=== PATIENT | female | born 1970 | race Caucasian/White ===

== ENCOUNTER 2017-12-30 20:21 | Emergency (ER) | payer OTHER ==
--- NOTE | 2017-12-30 21:32 | ED Physician Documentation ---
PD HPI BACK PAIN - Stated complaint Stated Complaint: BACK PAIN - Chief complaint Chief Complaint: Back Pain - History obtained from History obtained from: Patient - History of Present Illness Timing - onset: How many hours ago, Today Timing - duration: Hours Timing - details: Abrupt onset, Still present Location: Upper, Right Quality: Pain, Sharp Associated symptoms: Other (has had cough and congestion for few days, coughing hard. Onset of pain right thoracic back today.). No: Fever, Weakness, Numbness Worsened by: Movement, Twisting, Other (deep breathing) Contributing factors: Other (cough). 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 HEENT: None Other Past Medical History: Uteran cyst - Past Surgical History Past Surgical History: No /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: section, Other - Present Medications Home Medications: Ambulatory Orders Medication Instructions Recorded Confirmed Doxycycline Monohydrate 100 mg PO BID #14 tablet 12/30/17 HYDROcod/ACETAM 5/325 [[place] 5/325] 1 tab PO Q6H PRN #12 tablet 12/30/17 Methocarbamol [Robaxin] 500 mg PO Q6H PRN #20 tablet 12/30/17 Naproxen 375 mg PO BID #20 tablet 12/30/17 - Allergies Allergies/Adverse Reactions: Allergies Allergy/AdvReac Type Severity Reaction Status Date / Time codeine AdvReac Hives Verified 12/30/17 20:31 - Social History Does the pt smoke?: No Smoking Status: Never smoker Does the pt drink ETOH?: Yes Does the pt have substance abuse?: No - Family History Family history: denies: Aortic aneursym, Aortic dissection - Immunizations Immunizations are current?: Yes - POLST Patient has POLST: No PD ED PE NORMAL - Vitals Vital signs reviewed: Yes (sats 99%, initial heart rate was fast.) - General General: Alert and oriented X 3, Well developed/nourished - HEENT HEENT: Ears normal, Pharynx benign - Neck Neck: Supple, no meningeal sign, No adenopathy - Cardiac Cardiac: RRR, No murmur - Respiratory Respiratory: Clear bilaterally, Other (thoracic back muscles tender to firmer palpation. ) - Abdomen Abdomen: Normal bowel sounds, Soft, Non tender, Non distended - Back Back: No CVA TTP, No spinal TTP (but tender in mid thoracic muscles to the right. ) - Derm Derm: Normal color, Warm and dry, No rash - Extremities Extremities: No deformity, No tenderness to palpate, No edema, No calf tenderness / cord - Neuro Neuro: Alert and oriented X 3, No motor deficit, Normal speech Results - Vitals Vitals: Oxygen O2 Source Room air - Labs Labs: Laboratory Tests 12/30/17 22:25 Urine Color YELLOW Urine Clarity HAZY Urine pH 5.5 Ur Specific [place] >=1.030 H Urine Protein NEGATIVE Urine Glucose (UA) NEGATIVE Urine Ketones TRACE Urine Occult Blood NEGATIVE Urine Nitrite POSITIVE H Urine Bilirubin NEGATIVE Urine Urobilinogen 0.2 (NORMAL) Ur Leukocyte Esterase NEGATIVE Urine RBC None Seen Urine WBC 0-3 Ur Squamous Epith Cells MOD Squamous H Urine Crystals 3-5 Calcium Oxalate Urine Bacteria Few Urine Mucus Moderate Strands Ur Microscopic Review INDICATED Urine Culture Comments NOT INDICATED - Rads (name of study) chest xray Radiology: Prelim report reviewed, EMP read contemporaneously (right mid lung field infiltrate. no PTX nor other acute process. ) PD MEDICAL DECISION MAKING - ED course Complexity details: reviewed results, considered differential (has pneumonia appearance in area of pain and has had cough. Presume some pleurisy and muscular pain in that area. No risk factors for PE nor any leg findings. Sats are good. Heart rhythm is good. ), d/w patient Departure - Departure Disposition: 01 Home, Self Care Clinical Impression: Acute thoracic back pain Qualifiers: Back pain laterality: right Qualified Code(s): M54.6 - Pain in thoracic spine Pneumonia Qualifiers: Pneumonia type: due to unspecified organism Laterality: right Lung location: middle lobe of lung Qualified Code(s): J18.1 - Lobar pneumonia, unspecified organism Condition: Stable Record reviewed to determine appropriate education?: Yes Instructions: ED Spasm Back No Trauma, ED Pneumonia Adult Follow-Up: Leatha Regan PA [Primary Care Provider] - Prescriptions: Doxycycline Monohydrate 100 mg PO BID #14 tablet HYDROcod/ACETAM 5/325 [[place] 5/325] 1 tab PO Q6H PRN #12 tablet PRN Reason: Pain Methocarbamol [Robaxin] 500 mg PO Q6H PRN #20 tablet PRN Reason: Spasms Naproxen 375 mg PO BID #20 tablet Comments: Your urine does not have any blood so not suggestive of a kidney stone and your symptoms are not quite sound like that. Chest x-ray does show a small little patch on the right side suggestive of early pneumonia. This can cause inflammation around the lung I can hurt quite a bit with coughing and breathing. Sounds like some element of muscular pain as well given your description of it. I would have you take an anti-inflammatory naproxen twice daily for the next week. Doxycycline antibiotic twice daily for a week for the infection. Add Robaxin if needed for muscle spasms and stiffness. Add Tylenol or hydrocodone if needed for worse pain. Recheck if not improved over the next few days. Discharge Date/Time: 12/30/17 23:01
[2017-12-30] MEDS ORDERED: METHOCARBAMOL 500 MG TABLET PO STA (21:58)
[2017-12-30] MEDS ORDERED: HYDROcod/ACET 5/325 Prepack 6 PO STA (21:58)
[2017-12-30] MEDS ORDERED: HYDROcod/ACETAM 5/325 MG TABLET PO STA (21:58)
[2017-12-30] MEDS ORDERED: NAPROXEN 250 MG TABLET PO STA (21:58)
[2017-12-30 22:32] LABS: GLUCOSE, URINE (UA) NEGATIVE (NEGATIVE); KETONES,URINE (UA) TRACE mg/dL (NEGATIVE); LEUKOCYTE ESTERASE, URINE NEGATIVE (NEGATIVE); NITRITE,URINE POSITIVE (NEGATIVE); OCCULT BLOOD,URINE NEGATIVE (NEGATIVE); PH,URINE 5.5 PH (5.0-7.5); PROTEIN,URINE NEGATIVE (NEGATIVE); UROBILINOGEN,URINE 0.2 (NORMAL) E.U./dL (NORMAL)
[2017-12-30 22:36] LABS: BILIRUBIN,URINE NEGATIVE (NEGATIVE); ICTOTEST,URINE NEGATIVE
[2017-12-30 22:37] LABS: CLARITY,URINE HAZY (CLEAR)
[2017-12-30 22:41] LABS: BACTERIA,URINE Few /HPF (None Seen); CRYSTALS,URINE 3-5 Calcium Oxalate /LPF; MUCUS,URINE Moderate Strands; RBC,URINE None Seen /HPF (0-5); SQUAMOUS EPITHELIAL CELL,UR MOD Squamous (<= Few)
[2017-12-30] MEDS ORDERED: DOXYCYCLINE 100 MG TABLET PO STA (22:43)
--- NOTE | 2017-12-30 22:46 | XRAY Report ---
EXAM: CHEST RADIOGRAPHY EXAM DATE: 12/30/2017 10:25 PM. CLINICAL HISTORY: Right back/thoracic pain tonight. COMPARISON: None. TECHNIQUE: 2 views. FINDINGS: Lungs/Pleura: Focal right upper lobe opacity abutting the minor fissure. No pleural effusion seen. No pneumothorax. Mediastinum: Heart and mediastinal contours are unremarkable. Other: Status post cholecystectomy. IMPRESSION: 1. Mild focal right upper lobe opacity abutting the minor fissure, suspicious for pneumonia. 2. Recommend radiographic follow-up to show resolution and rule out malignancy. [facility] Referring Provider Line: [phone] SITE ID: [id number]
--- NOTE | 2017-12-30 22:46 | XRAY Preliminary Report ---
Exam: XR CHEST 2 VIEW X-RAY IMPRESSION: 1. Mild focal right upper lobe opacity abutting the minor fissure, suspicious for pneumonia. 2. Recommend radiographic follow-up to show resolution and rule out malignancy. [facility] SITE ID: [id number]
[2017-12-30 22:58] VITALS: BP 109/63
== END 2017-12-30 23:01 | disposition home or self-care (01) ==
LOC: ED 20:21
DX: M54.6 Pain in thoracic spine (principal); J18.9 Pneumonia, unspecified organism
CPT/HCPCS: 71046; 81001; 99283; A9270; 81003; 87086

== ENCOUNTER 2019-03-27 02:07 | Emergency (ER) | payer OTHER ==
[2019-03-27] MEDS ORDERED: ONDANSETRON 4 MG/2 ML VIAL IVP STA (02:20)
--- NOTE | 2019-03-27 02:22 | ED Physician Documentation ---
History of Present Illness - Stated complaint Stated Complaint: VOMITING/SIDE PX - Chief complaint Chief Complaint: Abd Pain - History obtained from History obtained from: Patient - History of Present Illness Timing: Prior to arrival - Additonal information Additional information: Patient is a 48-year-old female with history of nephrolithiasis presenting with several hours of left-sided flank and abdominal pain reminiscent of previous kidney stones. Patient also complains of nausea, vomiting, diarrhea without urination changes or fever. Patient does report history of requiring lithotripsy and stent placement to remove stones. Patient follows with urology at [facility]. Otherwise, patient has been at her normal state of health and without complaint. No other improving or worsening factors noted. 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: section, Dilation and currettage, Other - Present Medications Home Medications: Ambulatory Orders Medication Instructions Recorded Confirmed Hydrocodone/Acetaminophen 1 - 2 each PO Q6H PRN #14 tablet 03/27/19 [Hydrocodon-Acetaminophen 5-325] Ondansetron Odt [Zofran] 4 mg TL Q6H PRN #10 tablet 03/27/19 Tamsulosin [Flomax] 0.4 mg PO DAILY #14 capsule 03/27/19 - Allergies Allergies/Adverse Reactions: Allergies Allergy/AdvReac Type Severity Reaction Status Date / Time codeine AdvReac Hives Verified 12/30/17 20:31 - Social History Does the pt smoke?: No Smoking Status: Former smoker Does the pt drink ETOH?: Yes Does the pt have substance abuse?: No - Immunizations Immunizations are current?: Yes - POLST Patient has POLST: No PD ED PE NORMAL - Vitals Vital signs reviewed: Yes - General General: Alert and oriented X 3, No acute distress, Well developed/nourished - HEENT HEENT: Atraumatic, Moist mucous membranes - Cardiac Cardiac: RRR, No murmur - Respiratory Respiratory: No respiratory distress, Clear bilaterally - Abdomen Abdomen: Normal bowel sounds, Soft, Non distended. No: Non tender (LLQ te nderness) - Back Back: No: No CVA TTP (Extremely mild left CVA tenderness) - Derm Derm: Normal color, Warm and dry, No rash - Extremities Extremities: No deformity, No tenderness to palpate - Neuro Neuro: Alert and oriented X 3, No motor deficit, No sensory deficit - Psych Psych: Normal mood, Normal affect Results - Vitals Vitals: Vital Signs - 24 hr 03/27/19 02:10 Temperature 36.8 C Heart Rate 109 H Respiratory 17 Rate Blood Pressure 117/99 H O2 Saturation 99 Oxygen O2 Source Room air - Labs Labs: Laboratory Tests 03/27/19 03/27/19 03/27/19 02:16 02:30 02:30 WBC 8.9 RBC 5.05 Hgb 14.1 Hct 42.8 MCV 84.8 MCH 28.0 MCHC 32.9 RDW 14.1 Plt Count 237 MPV 10.6 Neut # (Auto) 6.5 Lymph # (Auto) 1.7 [place] # (Auto) 0.5 Eos # (Auto) 0.1 Baso # (Auto) 0.1 Absolute Nucleated RBC 0.00 Nucleated RBC % 0.0 Sodium 140 Potassium 4.5 Chloride 107 Carbon Dioxide 21 Anion Gap 12.0 BUN 17 Creatinine 1.0 Estimated GFR (MDRD) 59 L Glucose 119 H Calcium 9.1 Total Bilirubin 1.9 H AST 27 ALT 15 Alkaline Phosphatase 58 Total Protein 7.5 Albumin 4.5 Globulin 3.0 Albumin/Globulin Ratio 1.5 Lipase 42 Urine Color YELLOW Urine Clarity HAZY Urine pH 6.0 Ur Specific [place] 1.025 Urine Protein 30 H Urine Glucose (UA) NEGATIVE Urine Ketones TRACE Urine Occult Blood LARGE H Urine Nitrite NEGATIVE Urine Bilirubin NEGATIVE Urine Urobilinogen 0.2 (NORMAL) Ur Leukocyte Esterase NEGATIVE Urine RBC TNTC H Urine WBC 0-3 Ur Squamous Epith Cells MOD Squamous H Urine Bacteria Few Ur Microscopic Review INDICATED Urine Culture Comments NOT INDICATED PD MEDICAL DECISION MAKING - ED course Complexity details: reviewed results, re-evaluated patient, considered differential, d/w patient, d/w family ED course: Patient presenting with likely nephrolithiasis, but also considered pyelonephritis and UTI, but feel less likely. Do not feel that it is have high likelihood the patient is experiencing AAA, diverticulitis, small bowel obstruction, or other intra-abdominal pathology or even pelvic pathology, but considered. Patient started on IV fluids, as well as nausea and pain medication. Patient does report allergy to codeine per chart, but she admits to taking morphine and other narcotics without issue. Upon reevaluation, patient much more comfortable. Screening lab work returned relatively unremarkable including no elevation in creatinine. Urinalysis found presence of blood, but not infection. CT imaging indicated mild hydronephrosis on the left with 4 mm x 4 mm stone present. Discussed results and recommendations with patient. Do feel that she is safe to discharge home with medications at this time but adv ised her to contact her urologist later this morning to establish appropriate follow-up and potential discussion for intervention if patient is unable to pass the stone at home. Patient voiced understanding and is comfortable with discharge plan. Departure - Departure Disposition: 01 Home, Self Care Clinical Impression: Nephrolithiasis Condition: Good Instructions: ED Stone Renal W Colic Follow-Up: Leatha Regan PA [Primary Care Provider] - Within 3 Days your,urologist [Other] - Tomorrow Prescriptions: Hydrocodone/Acetaminophen [Hydrocodon-Acetaminophen 5-325] 1 - 2 each PO Q6H PRN #14 tablet PRN Reason: pain Ondansetron Odt [Zofran] 4 mg TL Q6H PRN #10 tablet PRN Reason: Nausea / Vomiting Tamsulosin [Flomax] 0.4 mg PO DAILY #14 capsule Comments: Please continue any home medications as previously instructed. Please take Flomax to help passage of stone. Please use Zofran and [place] as prescribed for nausea and pain control, respectively. If taking [place], please do not combine with Tylenol and otherwise start laxative or stool softener to avoid constipation. Do not combine [place] with alcohol or driving. If not using [place], may use Tylenol for pain relief. Recommend hydration and contacting your urologist later this morning to establish close follow-up in the next several days. Return to ED sooner if experience worsening symptoms or other concerns.
[2019-03-27] MEDS ORDERED: ONDANSETRON 4 MG/2 ML VIAL ONE (02:29)
[2019-03-27 02:42] LABS: BILIRUBIN,URINE NEGATIVE (NEGATIVE); CLARITY,URINE HAZY (CLEAR); GLUCOSE, URINE (UA) NEGATIVE (NEGATIVE); KETONES,URINE (UA) TRACE mg/dL (NEGATIVE); LEUKOCYTE ESTERASE, URINE NEGATIVE (NEGATIVE); NITRITE,URINE NEGATIVE (NEGATIVE); OCCULT BLOOD,URINE LARGE (NEGATIVE); PROTEIN,URINE 30 mg/dL (NEGATIVE); UROBILINOGEN,URINE 0.2 (NORMAL) E.U./dL (NORMAL)
[2019-03-27] MEDS ORDERED: SODIUM CHLORIDE 0.9% 1,000 ML IV ONE (02:44)
[2019-03-27 02:45] LABS: BACTERIA,URINE Few /HPF (None Seen); RBC,URINE TNTC /HPF (0-5); SQUAMOUS EPITHELIAL CELL,UR MOD Squamous (<= Few)
[2019-03-27] MEDS ORDERED: KETOROLAC 30 MG/ML VIAL IVP STA (02:45)
[2019-03-27 02:58] LABS: BASOPHILS # (AUTO) 0.1 10^3/uL (0.0-0.1); BASOPHILS % (AUTO) 0.7 %; EOSINOPHILS # (AUTO) 0.1 10^3/uL (0.0-0.7); EOSINOPHILS % (AUTO) 1.6 %; HGB - HEMOGLOBIN 14.1 g/dL (12.0-16.0); LYMPHOCYTES # (AUTO) 1.7 10^3/uL (1.5-3.5); LYMPHOCYTES % (AUTO) 18.6 %; MEAN CORPUSCULAR HGB CONC 32.9 g/dL (32.0-36.0); MEAN CORPUSCULAR VOLUME 84.8 fL (81.0-99.0); MEAN PLATELET VOLUME 10.6 fL (7.9-10.8); MONOCYTES # (AUTO) 0.5 10^3/uL (0.0-1.0); NEUTROPHILS # (AUTO) 6.5 10^3/uL (1.5-6.6); NEUTROPHILS % (AUTO) 73.1 %; PLT - PLATELET COUNT 237 10^3/uL (130-450); RED BLOOD COUNT 5.05 10^6/uL (4.20-5.40); RED CELL DISTRIBUTION WIDTH 14.1 % (12.0-15.0); WHITE BLOOD COUNT 8.9 x10^3/uL (4.8-10.8)
[2019-03-27] MEDS ORDERED: MORPHINE 2 MG/ML CARPUJECT IVP STA (03:11)
[2019-03-27 03:12] LABS: ALBUMIN 4.5 g/dL (3.2-5.5); ALBUMIN/GLOBULIN RATIO 1.5 (1.0-2.2); BILIRUBIN,TOTAL 1.9 mg/dL (0.2-1.0); CALCIUM 9.1 mg/dL (8.5-10.3); TOTAL PROTEIN 7.5 g/dL (6.7-8.2)
--- NOTE | 2019-03-27 03:25 | CT Report ---
Reason: Hx of kidney stone, left flank and belly pain Procedure Date: 03/27/2019 Accession Number: [id number] / [id number] Procedure: CT - Abdomen/Pelvis WO CPT Code: FULL RESULT: EXAM: CT ABDOMEN AND PELVIS (CT KUB) EXAM DATE: 03/27/2019 03:07 AM. CLINICAL HISTORY: History of kidney stone, left flank and belly pain. COMPARISONS: ABDOMEN/PELVIS W/O 12/22/2015 6:05 AM. TECHNIQUE: Routine axial helical CT imaging was performed through the abdomen and pelvis without IV contrast. Reconstructions: Coronal and sagittal. In accordance with CT protocol optimization, one or more of the following dose reduction techniques were utilized for this exam: automated exposure control, adjustment of mA and/or KV based on patient size, or use of iterative reconstructive technique. FINDINGS: Lung Bases: Unremarkable. Right Kidney/Ureter: No stones, hydronephrosis, or hydroureter. Left Kidney/Ureter: Moderately obstructing 4 x 4 mm mid to distal left ureteral stone. Additional tiny nonobstructing left renal stone. Otherwise grossly unremarkable. Other Abdominal Organs: Noncontrast images of the abdominal organs are grossly unremarkable with note of prior cholecystectomy. Peritoneal Cavity: No free fluid, free air or rahul adenopathy. No excessive stool burden. Bowel is grossly unremarkable. Pelvic Organs: No bladder stones or gross wall thickening. Suspect uterine fibroids. No suspicious adnexal mass is seen. Vasculature: Unremarkable. Other: Small fat-containing periumbilical hernia without apparent complication. IMPRESSION: 1. Moderately obstructing 4 x 4 mm mid to distal left ureteral stone. 2. Additional tiny nonobstructing left renal stone. 3. Fibroid uterus. 4. Previous cholecystectomy. [facility]
[2019-03-27] MEDS ORDERED: ONDANSETRON ODT 4 MG Prepack 2 TL PRN (03:32)
[2019-03-27] MEDS ORDERED: HYDROcod/ACET 5/325 Prepack 4 PO STA (03:32)
[2019-03-27] MEDS ORDERED: TAMSULOSIN 0.4 MG CAPSULE PO STA (03:38)
[2019-03-27 03:50] VITALS: BP 116/86
== END 2019-03-27 03:52 | disposition home or self-care (01) ==
LOC: ED 02:07
DX: N13.2 Hydronephrosis with renal and ureteral calculous obstruction (principal); Z87.891 Personal history of nicotine dependence
CPT/HCPCS: 36415; 74176; 80053; 81001; 83690; 85025; 96374; 96375; 99283; 99284; A9270; 81003; 87086

== ENCOUNTER 2023-11-22 12:00 | Outpatient (CLI) | payer OTHER ==
[2023-11-22 15:28] LABS: BASOPHILS % (AUTO) 0.6 %; EOSINOPHILS # (AUTO) 0.1 10^3/uL (0.0-0.7); EOSINOPHILS % (AUTO) 1.4 %; HCT - HEMATOCRIT 41.3 % (37.0-47.0); HGB - HEMOGLOBIN 12.7 g/dL (12.0-16.0); LYMPHOCYTES # (AUTO) 1.5 10^3/uL (1.5-3.5); MEAN CORPUSCULAR HEMOGLOBIN 26.3 pg (27.0-31.0); MEAN CORPUSCULAR HGB CONC 30.8 g/dL (32.0-36.0); MEAN CORPUSCULAR VOLUME 85.7 fL (81.0-99.0); MEAN PLATELET VOLUME 12.4 fL (7.9-10.8); MONOCYTES # (AUTO) 0.4 10^3/uL (0.0-1.0); MONOCYTES % (AUTO) 5.7 %; NEUTROPHILS # (AUTO) 4.7 10^3/uL (1.5-6.6); NEUTROPHILS % (AUTO) 70.1 %; PLT - PLATELET COUNT 224 10^3/uL (130-450); RED BLOOD COUNT 4.82 10^6/uL (4.20-5.40); RED CELL DISTRIBUTION WIDTH 15.4 % (12.0-15.0); WHITE BLOOD COUNT 6.6 x10^3/uL (4.8-10.8)
[2023-11-22 15:56] LABS: % IRON SATURATION 12 % (20-50); ALBUMIN 4.2 g/dL (3.2-5.5); ALBUMIN/GLOBULIN RATIO 1.7 (1.0-2.2); ALKALINE PHOSPHATASE 73 IU/L (42-121); ALT ALANINE AMINOTRANSFERASE 56 IU/L (10-60); AST ASPARTATE AMINOTRANSFERASE 32 IU/L (10-42); BILIRUBIN,TOTAL 1.3 mg/dL (0.2-1.0); BUN - BLOOD UREA NITROGEN 15 mg/dL (6-20); CALCIUM 9.4 mg/dL (8.5-10.3); CARBON DIOXIDE - CO2 28 mmol/L (21-32); CHLORIDE 105 mmol/L (101-111); CHOL/HDL RATIO 3.2 (<4.4); CHOLESTEROL 206 mg/dL; GFR - MDRD 58 (>89); GLUCOSE 85 mg/dL (74-104); HDL CHOLESTEROL 65 mg/dL; IRON 58 ug/dL (50-212); LDL CHOLESTEROL,CALCULATED 127 mg/dL; POTASSIUM 4.2 mmol/L (3.5-4.5); SODIUM 139 mmol/L (135-145); TOTAL IRON BINDING CAPACITY 470 ug/dL (250-450); TOTAL PROTEIN 6.7 g/dL (6.4-8.9); TRANSFERRIN 336 mg/dL (203-362); TRIGLYCERIDES 69 mg/dL (48-352); VLDL CHOLESTEROL 14 mg/dL
[2023-11-22 16:13] LABS: FERRITIN 6.9 ng/mL (11.0-306.8)
[2023-11-22 20:59] LABS: ESTIMATED AVERAGE GLUCOSE 108 mg/dL (70-100); HEMOGLOBIN A1c% 5.4 % (4.27-6.07)
[2023-11-23 03:11] LABS: HCV AB Non Reactive (Non Reactive)
== END 2023-11-22 12:01 | disposition home or self-care (01) ==
LOC: LAB.S 12:00
PROVIDERS: ATTEND Registered Nurse
DX: R53.83 Other fatigue (principal); E66.9 Obesity, unspecified; Z11.59 Encounter for screening for other viral diseases; Z13.6 Encounter for screening for cardiovascular disorders
CPT/HCPCS: 36415; 80053; 80061; 82728; 83036; 83540; 83721; 84443; 84466; 85025; 86803

== ENCOUNTER 2024-06-02 10:46 | Outpatient (CLI) | payer OTHER ==
--- NOTE | 2024-06-03 08:08 | Mammography Report ---
BILATERAL DIGITAL SCREENING MAMMOGRAM 3D/2D WITH EXAGGERATED CC: 06/02/2024 CLINICAL: Routine screening. Family history of breast cancer. No prior exams were available for comparison. There are scattered areas of fibroglandular density in both breasts (category b / 25%-50% glandular t issue). No significant masses, calcifications, or other findings are seen in either breast. IMPRESSION: NEGATIVE There is no mammographic evidence of malignancy. A 1 year screening mammogram is recommended. Based on the Tyrer Cuzick model (a risk assessment model) the patient's lifetime risk is 7.1% and her 10 year risk is 2.0%. According to the ACR, ACS, and NCCN guidelines, an annual breast MRI exam tolu g with mammogram is recommended if the patient's lifetime risk is 20% or greater. This exam was interpreted at Station ID: [id number]. NOTE: For mammograms, a report in lay terms will be sent to the patient. Approximately 15% of breast malignancies will not be visualized mammographically. In the management of a palpable breast mass, a negative mammogram must not discourage biopsy of a clinically suspicious lesion. Electronically Signed By: Elizabeth Faustin M.D., Ph.D. eb/brice:06/03/2024 06:07:56 letter sent: No_Letter ACR BI-RADS Category 1: Negative 3341F PARENCHYMAL PATTERN: (A) - The breast(s) demonstrate(s) scattered fibroglandular densities. BI-RADS CATEGORY: (1) - 1 RECOMMENDATION: (ANNUAL) - Recommend routine annual screening mammography. [id number] 1 year screening LATERALITY: (B)
== END 2024-06-02 10:47 | disposition home or self-care (01) ==
LOC: DI.S 10:46
PROVIDERS: ATTEND Registered Nurse
DX: Z12.31 Encounter for screening mammogram for malignant neoplasm of breast (principal); Z80.3 Family history of malignant neoplasm of breast; R92.323 Mammographic fibroglandular density, bilateral breasts

== ENCOUNTER 2024-07-09 10:37 | Emergency (ER) | payer OTHER ==
[2024-07-09 11:06] VITALS: BP 133/76
[2024-07-09 11:26] LABS: BASOPHILS % (AUTO) 0.4 %; EOSINOPHILS # (AUTO) 0.1 10^3/uL (0.0-0.7); EOSINOPHILS % (AUTO) 1.5 %; HCT - HEMATOCRIT 45.5 % (37.0-47.0); HGB - HEMOGLOBIN 14.6 g/dL (12.0-16.0); LYMPHOCYTES # (AUTO) 1.3 10^3/uL (1.5-3.5); LYMPHOCYTES % (AUTO) 18.1 %; MEAN CORPUSCULAR HEMOGLOBIN 28.4 pg (27.0-31.0); MEAN CORPUSCULAR HGB CONC 32.1 g/dL (32.0-36.0); MEAN CORPUSCULAR VOLUME 88.5 fL (81.0-99.0); MEAN PLATELET VOLUME 12.2 fL (7.9-10.8); MONOCYTES # (AUTO) 0.4 10^3/uL (0.0-1.0); NEUTROPHILS # (AUTO) 5.5 10^3/uL (1.5-6.6); NEUTROPHILS % (AUTO) 74.7 %; PLT - PLATELET COUNT 190 10^3/uL (130-450); RED BLOOD COUNT 5.14 10^6/uL (4.20-5.40); RED CELL DISTRIBUTION WIDTH 13.3 % (12.0-15.0); WHITE BLOOD COUNT 7.4 x10^3/uL (4.8-10.8)
[2024-07-09 11:31] LABS: BILIRUBIN,URINE NEGATIVE (NEGATIVE); GLUCOSE, URINE (UA) NEGATIVE (NEGATIVE); KETONES,URINE (UA) NEGATIVE (NEGATIVE); LEUKOCYTE ESTERASE, URINE NEGATIVE (NEGATIVE); NITRITE,URINE NEGATIVE (NEGATIVE); OCCULT BLOOD,URINE LARGE (NEGATIVE); PROTEIN,URINE NEGATIVE (NEGATIVE); UROBILINOGEN,URINE 0.2 (NORMAL) E.U./dL (NORMAL)
[2024-07-09 11:32] LABS: CLARITY,URINE CLEAR (CLEAR)
[2024-07-09 11:34] LABS: HCG UR QUAL NEGATIVE
[2024-07-09 11:45] LABS: BACTERIA,URINE Few /HPF (None Seen); RBC,URINE 0-5 /HPF (0-5); SQUAMOUS EPITHELIAL CELL,UR MOD Squamous (<= Few); WBC,URINE 0-3 /HPF (0-5)
--- NOTE | 2024-07-09 11:50 | ED Physician Documentation ---
History of Present Illness - Stated complaint Stated Complaint: ,LOWER BACK PX - Chief complaint Chief Complaint: Abd Pain - History obtained from History obtained from: Patient - Additonal information Additional information: Patient is a 53-year-old female presenting to the emergency department from home. Patient has left flank pain that has been going on and off for about 3 weeks however overnight she had severe back pain and when she woke up this morning she had sudden severe back pain and nausea and vomiting. She notes her pain has improved here as she took [place] at home with mild relief. She notes she is currently on her menstrual period but denies any urinary symptoms no blood in her urine she has been having intermittent diarrhea and some bloating to her abdomen which is abnormal as she has a history of nephrolithiasis/urolithiasis and these syptoms are not usually part of her pain. No fevers chills. No rash to the area. Pain is mainly in the left upper flank at this time. She notes it did radiate down to her left pelvis and left lower abdomen. She denies any black or bloody stools. No history of abdominal surgeries. 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: section, Dilation and currettage, Other - Present Medications Home Medications: Ambulatory Orders Medication Instructions Recorded Confirmed Hydrocodone/Acetaminophen 1 - 2 each PO Q6H PRN #14 tablet 03/27/19 07/09/24 [Hydrocodon-Acetaminophen 5-325] Tamsulosin [Flomax] 0.4 mg PO DAILY #14 capsule 03/27/19 07/09/24 - Allergies Allergies/Adverse Reactions: Allergies Allergy/AdvReac Type Severity Reaction Status Date / Time codeine AdvReac Hives Verified 07/09/24 10:45 - Social History Does the pt smoke?: No Smoking Status: Never smoker Does the pt drink ETOH?: Yes Does the pt have substance abuse?: Yes Substance Use and Type: Marijuana - Immunizations Immunizations are current?: Yes - POLST Patient has POLST: No PD ED PE NORMAL - Vitals Vital signs reviewed: Yes - General General: Alert and oriented X 3 - HEENT HEENT: Atraumatic - Neck Neck: Supple, no meningeal sign - Cardiac Cardiac: RRR, No murmur, No gallop, No rub - Respiratory Respiratory: No respiratory distress, Clear bilaterally - Abdomen Abdomen: Normal bowel sounds, Soft, Other (Positive left-sided CVA tenderness abdomen is soft without rebound or guarding on examination. No signs of bruising swelling or rash to bilateral flank areas.No rebound or guarding on examination of abdomen. Active bowel sounds on auscultation) - Female Female : Deferred - Rectal Rectal: Deferred - Back Back: Other (Left-sided CVA tenderness.) - Derm Derm: Normal color, Warm and dry, No rash - Neuro Neuro: Alert and oriented X 3 Eye Opening: Spontaneous Motor: Obeys Commands Verbal: Oriented GCS Score: 15 Results - Vitals Vitals: Vital Signs - 24 hr 07/09/24 10:45 Temperature 36.6 C Heart Rate 87 Respiratory 16 Rate Blood Pressure 133/76 H O2 Saturation 99 Oxygen O2 Source Room air - Labs Labs: Laboratory Tests 07/09/24 07/09/24 07/09/24 10:39 11:08 11:08 WBC 7.4 RBC 5.14 Hgb 14.6 Hct 45.5 MCV 88.5 MCH 28.4 MCHC 32.1 RDW 13.3 Plt Count 190 MPV 12.2 H Neut # (Auto) 5.5 Lymph # (Auto) 1.3 L [place] # (Auto) 0.4 Eos # (Auto) 0.1 Baso # (Auto) 0.0 Absolute Nucleated RBC 0.00 Nucleated RBC % 0.0 Sodium 139 Potassium 4.5 Chloride 106 Carbon Dioxide 29 Anion Gap 4.0 L BUN 18 Creatinine 1.0 Estimated GFR (MDRD) 58 L Glucose 105 H Calcium 8.9 Total Bilirubin 1.6 H AST 23 ALT 16 Alkaline Phosphatase 67 Total Protein 6.3 L Albumin 4.4 Globulin 1.9 L Albumin/Globulin Ratio 2.3 H Lipase 42 Urine Color YELLOW Urine Clarity CLEAR Urine pH 7.0 Ur Specific [place] 1.020 Urine Protein NEGATIVE Urine Glucose (UA) NEGATIVE Urine Ketones NEGATIVE Urine Occult Blood LARGE H Urine Nitrite NEGATIVE Urine Bilirubin NEGATIVE Urine Urobilinogen 0.2 (NORMAL) Ur Leukocyte Esterase NEGATIVE Urine RBC 0-5 Urine WBC 0-3 Ur Squamous Epith Cells MOD Squamous H Urine Bacteria Few Ur Microscopic Review INDICATED Urine Culture Comments NOT INDICATED Urine HCG, Qual NEGATIVE - Rads (name of study) CT abdomen pelvis Relevant Findings:: EMP independent interpretation of test PD Medical Decision Making - ED course Complexity details: reviewed old records, reviewed results, re-evaluated patient ED course: Patient is a 53-year-old female presenting to the emergency department with left flank pain going on intermittent for about 3 weeks but worsened overnight. She notes she has had associated symptoms of abdominal bloating and diarrhea as well. She has a history of nephro lithiasis and urolithiasis as well. She notes with the abdominal pain and bloating she became concerned as these were not her usual symptoms when passing kidney stone. She was last here back in 2019 with left sided kidney stone about 4 mm in size on review of history. She notes her pain is mainly in the left flank radiating down occasionally to her left lower abdomen. She denies any urinary symptoms she is on her menstrual period but has not noticed any other blood in her urine. Vital stable on arrival. Physical exam shows reproducible left CVA tenderness abdomen is soft without rebound or guarding on examination. Labs here in the emergency department show no leukocytosis hemoglobin is stable. CMP shows no significant SVETA. UA shows no signs of UTI there is some blood in the urine but could be secondary from patient's recent menstrual period. CT scan obtained given reproducible left CVA tenderness without contrast to evaluate for possible kidney stone. There is no signs of nephrolithiasis or urolithiasis. No signs of hydronephrosis. Patient does have left adnexal cyst and a fibroid uterus. Given his severe pain on left side earlier today will obtain ultrasound of pelvis to evaluate for flow to left ovary. Patient continues to deny any pain at this time. Ultrasound obtained here in the emergency department shows fibroid uterus with left 3 cm adnexal cyst with blood flow no signs of free fluid. Patient updated on reassuring findings. She continues to deny any pain. Discussed with patient we will give referral to [facility] in the outpatient setting to ensure resolution of symptoms and given fibroid uterus and patient's frequent menstrual periods she would like to follow-up with [facility] for further evaluation. Discussed with patient she may need repeat imaging in 6 to 12 months for left adnexal cyst as well. Patient agreeable with this plan. She will return with any severe pain nausea vomiting fevers. She has pain medication at home she can take and antinausea meds for symptoms as well. Departure - Departure Disposition: 01 Home, Self Care Clinical Impression: Left flank pain, Left ovarian cyst, Cyst of ovary Condition: Good Instructions: Abdominal Pain Comments: You were seen here in the emergency department for your lower back pain your workup here showed no kidney stone did show about 3 cm ovarian cyst and a fibroid uterus. This could explain your intermittent menstrual periods as well as your severe pain. Recommend you follow-up with [facility] I have given you the phone number to follow-up with. You should return with any fevers worsening abdominal pain nausea vomiting. Please follow-up with your PCP as needed. Forms: PCP List
[2024-07-09 11:55] LABS: ALBUMIN 4.4 g/dL (3.2-5.5); ALBUMIN/GLOBULIN RATIO 2.3 (1.0-2.2); BILIRUBIN,TOTAL 1.6 mg/dL (0.2-1.0); CALCIUM 8.9 mg/dL (8.5-10.3); POTASSIUM 4.5 mmol/L (3.5-4.5); TOTAL PROTEIN 6.3 g/dL (6.4-8.9)
[2024-07-09] MEDS: KETOROLAC 30 MG/ML VIAL IVP STA (12:10)
--- NOTE | 2024-07-09 13:32 | CT Report ---
PROCEDURE: Abdomen/Pelvis WO INDICATIONS: evaluate for kidney stone TECHNIQUE: A CT scan of the abdomen and pelvis was performed without the use of intravenous contrast. Images we re recorded and evaluated at appropriate window settings. Reformats: coronal and sagittal. For radiat ion dose reduction, the following was used: automated exposure control, adjustment of mA and/or kV ac cording to patient size. COMPARISON: CT abdomen and pelvis dated 03/27/2019. FINDINGS: Image quality: Diagnostic. Lower chest: Unremarkable. Liver: No contour-deforming mass. Gallbladder: Surgically absent Biliary tree: No intrahepatic or extrahepatic dilation, accounting for age. Spleen: No splenomegaly. Pancreas: No pancreatic ductal dilation. Adrenals: No adrenal nodule. Kidneys and ureters: No hydronephrosis. No contour-deforming mass. Stomach, bowel and peritoneum: No gastric or small bowel dilation. No abnormal wall thickening. No pa thologic free fluid. Lymph nodes: No central or retroperitoneal adenopathy. Vessels: No infrarenal aortic aneurysm. Reproductive organs: Enlarged, multilobulated fibroid uterus. 3.0 cm left adnexal cyst. This was not present on the previous study Bladder: Bladder wall thickness is normal, accounting for underdistention. No calcified bladder stone s. Pelvic lymph nodes: No adenopathy by size criteria. Bones: No aggressive osseous abnormality. Other: No significant ventral or inguinal hernia. IMPRESSION: 1. No renal stone, ureteral stone, or hydronephrosis. 2. No acute abdominal process identified. 3. Fibroid uterus. 4. 3.0 cm left adnexal cyst. Comment: If this patient is postmenopausal, recommend follow-up pelvic ultrasound in 12 months to fur ther evaluate the left adnexal 3.0 cm cystic lesion. Reviewed by: Chandler Orozco MD on 07/09/2024 1:31 PM PDT Approved by: Chandler Orozco MD on 07/09/2024 1:31 PM PDT Station ID: [id number]
[2024-07-09 14:40] VITALS: O2SAT 100
--- NOTE | 2024-07-09 15:05 | Ultrasound Report ---
PROCEDURE: Pelvic w/Doppler Limited INDICATIONS: concern of left adnexal cyst TECHNIQUE: Real-time transabdominal scanning was performed of the pelvic organs, with image documentation. Dopp ler interrogation was performed of the ovaries bilaterally. COMPARISON: CT abdomen and pelvis dated 07/09/2024. FINDINGS: Uterus: Uterus is anteverted and fibroid in appearance, and increased in size at 10.8 x 5.8 x 7.2 cm . The myometrium is heterogeneous. The endometrium measures 4.7 mm in combined thickness. 3 fibroi ds are measured as follows: Fibroid 1: Left anterior subserosal, 4.6 x 4.1 x 4.9 cm. Fibroid 2: Right posterior subserosal, 2.4 x 2.5 x 2.5 cm. Fibroid 3: Right posterior subserosal, 2.7 x 2.2 x 2.5 cm Ovaries: The right ovary measures 3.2 x 1.4 x 1.7 cm, with a calculated ovarian volume of 4.0 cc. T he left ovary measures 5.2 x 2.6 x 3.1 cm, with a calculated ovarian volume of 22.0 cc. Appropriate blood flow to the ovaries with Doppler interrogation. Less than 12 follicles can be seen in each ov kerwin. No adnexal masses are seen. There is a left ovarian cyst measuring 3.0 x 2.5 x 2.8 cm. There is bilateral intraovarian flow by duplex. Other: No pathologic free abdominal or pelvic fluid. IMPRESSION: 1. Fibroid uterus. 2. No evidence of ovarian torsion. 3. Simple left ovarian cyst measuring 3.0 cm in maximum diameter. Reviewed by: Chandler Orozco MD on 07/09/2024 3:03 PM PDT Approved by: Chandler Orozco MD on 07/09/2024 3:03 PM PDT Station ID: [id number]
== END 2024-07-09 14:41 | disposition home or self-care (01) ==
LOC: ED 10:37
DX: N83.292 Other ovarian cyst, left side (principal); D25.2 Subserosal leiomyoma of uterus; N92.0 Excessive and frequent menstruation with regular cycle
CPT/HCPCS: 36415; 80053; 81001; 81003; 81025; 83690; 85025; 87086; 93976; 96374; 99283